=== PATIENT | male | born 1955 | race Caucasian/White ===

== ENCOUNTER → 2016-11-09 | Outpatient (CLI) | payer BC ==
--- NOTE | 2016-11-09 11:47 | DX ---
Chest, PA and Lateral History: Thoracic pain, M 52.16 Comparison: None Findings: Lung volumes are mildly prominent. There is retrocardiac bronchial wall thickening. There i s no focal infiltrate or consolidation. Heart size is normal. There is possibly prominent with of the descending aorta. There is no adenopathy or mass lesion. There is no pleural effusion or pneumothora x. There is a prominent thoracic kyphosis associated with likely old minor compression abnormalities of T7 and T8. There are small anterior osteophytes present throughout the thoracic spine below T2. Th ere is mild disk space narrowing of the T5-T6 disk space. Impression: 1. Kyphosis with likely remote trauma to T7 and T8. 2. Mild degenerative disk space narrowing C5-T6. 3. COPD. 4. Possible prominence of the ascending aorta. If there is concern for aortic valvular disease or an ascending aortic aneurysm, then CTA of the chest and/or echocardiography might be complementary. Amadou vaz, if there are any old outside chest x-rays, we would be happy to review them, to assess for int erval change. Results called to [facility] at 11:44am.
--- NOTE | 2016-11-09 11:51 | DX ---
Right Ribs, 4 views History: Severe acute right paraspinal pain without known trauma Comparison: None Findings: A metal BB is placed over the posterior right 11th rib where the patient has pain. No lower right rib fracture is identified. Minimal buckling of the posterior lateral right fifth rib likely r epresents an old fracture. The costovertebral alignments are normal. Impression: No acute rib abnormality identified.
== END ==
LOC: CIMAGING 10:54
PROVIDERS: ATTEND Physician Assistant
DX: R07.81 Pleurodynia (principal); M54.6 Pain in thoracic spine; M40.204 Unspecified kyphosis, thoracic region; J44.9 Chronic obstructive pulmonary disease, unspecified; R93.1 Abnormal findings on diagnostic imaging of heart and coronary circulation
CPT/HCPCS: 71020-PO; 71100-PO

== ENCOUNTER → 2016-11-14 | Outpatient (CLI) | payer BC ==
[~2016-11-14] MED LIST: IOPAMIDOL (ISOVUE 370) 100 ML BTL IV ONE
--- NOTE | 2016-11-14 18:16 | CT ---
CT Chest Aorta Angiogram With Contrast Enhancement and Multiplanar Reconstructions 1437 hours History: Thoracic aortic ectasia on chest x-ray study. Rule out aneurysm. Technique: Thin slice spiral multidetector helical CT imaging was performed through the chest while 9 0 mL Isovue-370 were injected intravenously without complication. The images were reviewed in multi ple planes. Volume rendering was performed to better visualize aortic contours as indicated. Dose re duction techniques were utilized. CT Aortogram Findings: The thoracic aorta has a normal contour without evidence of aneurysm or dissec tion. The great vessels off the aortic arch are normal in appearance. There is no evidence of atheros clerotic plaque involving the thoracic aorta with minimal plaque suspected involving the proximal to mid LAD. The branch vessels of the abdominal aorta in the upper abdomen to the level of the SMA are n ormal in appearance. The cardiac chambers are normal in appearance. There is no pericardial effusion. CT Chest Findings: The lungs are clear without consolidation, effusion, or pneumothorax. There are no pulmonary nodules. There is no evidence of hilar or mediastinal lymphadenopathy. The soft tissues ab out the chest are normal. Limited evaluation of upper abdominal structures to the level of the upper kidneys demonstrate no significant abnormality. Skeletal system: Vertebral body heights are well-maintained. There are no lytic or sclerotic osseous lesions. Hypertrophic calcifications are seen along the anterior and right lateral aspect of mid to l ower thoracic spine vertebral body segments compatible with underlying diffuse idiopathic skeletal hy perostosis (DISH). Impression: 1. Normal thoracic aorta without aneurysm or dissection. 2. No significant abnormality within the chest. 3. Mild DISH mid to lower thoracic spine.
== END ==
LOC: FIMAGING 13:49
PROVIDERS: ATTEND Physician Assistant
DX: I77.810 Thoracic aortic ectasia (principal); M48.14 Ankylosing hyperostosis [Forestier], thoracic region
CPT/HCPCS: Q9967

== ENCOUNTER 2017-12-01 15:13 | Emergency (ER) | payer BC ==
--- NOTE | 2017-12-01 15:23 | CPEKG ---
Heart Rate: 74 RR Interval: 811 P-R Interval: 164 QRSD Interval: 102 QT Interval: 400 QTC Interval: 444 P Prescott: 27 QRS Prescott: -22 T Wave Prescott: 43 EKG Severity - OTHERWISE NORMAL ECG - EKG Impression: SINUS RHYTHM EKG Impression: BORDERLINE LEFT AXIS DEVIATION Electronically Signed By: Tyrone Yu 03-Dec-2017 06:46:57
[2017-12-01 15:24] VITALS: TEMP 98.1
[2017-12-01 15:56] LABS: PLATELET COUNT 233 10^3/uL (150-400)
[2017-12-01 16:51] VITALS: RESP 16; O2SAT 93
--- NOTE | 2017-12-01 17:33 | EDPHY ---
H & P Time Seen by Provider: 12/01/17 15:18 HPI/ROS: 62-year-old male presents complaining of heart pounding while taking his shower today, he also noted that he skip a beat approximately every 10 beats. No chest pain, no shortness of breath, mild dizziness Patient with a history of hypertension and bipolar disorder, states he has been taking his medications as prescribed Had a "stomach bug" last week with diarrhea, no illnesses this week. No fever or chills. Pt plays rhythm guitar in a band. Review of systems As per HPI General no fever no chills no weakness HEENT no eye pain no eye discharge. No eye redness, no sore throat Respiratory no cough, no shortness of breath Cardiac no chest pain, no peripheral edema, positive palpitation GI no abdominal pain, no diarrhea, no constipation, no nausea, no vomiting no flank pain, no hematuria, no dysuria Musculoskeletal no myalgias, no joint pain Heme no easy bruising, no easy bleeding Endo no polyuria, no polydipsia Skin no rashes, no pruritus Neuro no syncope, mild dizziness, no headaches Psych is no suicidal ideation, no homicidal ideation Past Medical/Surgical History: Hypertension Bipolar Social History: Denies alcohol or drug use Smoking Status: Never smoked Physical Exam: 62-year-old male alert and oriented no acute distress nontoxic appearance, afebrile HEENT atraumatic normocephalic, extraocular muscles intact, anicteric Oropharynx negative for erythema negative exudate, tolerating her own secretions Neck supple no meningismus Lungs clear to auscultation bilaterally Heart regular rate and rhythm without murmur rub or gallop Abdomen nondistended normoactive bowel sounds soft nontender Back no CVA tenderness, no step-offs, no spinal tenderness Extremities no cyanosis clubbing or edema Neuro alert and oriented, no focal deficits Constitutional: Initial Vital Signs Temperature (C) 36.7 C 12/01/17 15:17 Heart Rate 83 12/01/17 15:17 Respiratory Rate 18 12/01/17 15:17 Blood Pressure 170/105 H 12/01/17 15:17 O2 Sat (%) 94 12/01/17 15:17 O2 Delivery Mode Room Air Allergies/Adverse Reactions: [id number] Reductase Inhibitor Allergy (Severe, Verified 12/01/17 15:24) Pt reports SYNCOPE/PASSED OUT Home Medications: Medication Instructions Recorded Depakote 04/29/10 FISH OIL CONCENTRATE 04/29/10 Felodipine 04/29/10 LITHIUM CARBONATE 04/29/10 Vit D3 04/29/10 WELCHOL 04/29/10 Metoprolol Tartrate 12/01/17 Medical Decision Making - Diagnostics Imaging Results: Imaging Impressions Chest X-Ray 12/01/17 15:41 Impression: No acute thoracic abnormality. ED Course/Re-evaluation: Patient evaluated for palpitations, mild dizziness, sensation of a skipped heartbeat. EKG normal sinus rhythm no acute ischemic changes Chest x-ray normal Labs Troponin normal TSH normal CBC CMP within normal limits Impression Palpitations Plan Discharge home Follow-up primary care physician Differential Diagnosis: Differential diagnosis considered but not limited to: Electrolyte abnormality, myocardial infarction, arrhythmia, dysrhythmia, orthostasis, palpitations, SVT, AFib, pneumonia - Data Points Laboratory Results: Laboratory Results 12/01/17 15:50 12/01/17 15:50 12/01/17 12/01/17 15:50 15:50 WBC 7.89 10^3/uL 10^3/uL (3.80-9.50) RBC 5.21 10^6/uL 10^6/uL (4.40-6.38) Hgb 16.4 g/dL g/dL (13.7-17.5) Hct 46.8 % % (40.0-51.0) MCV 89.8 fL fL (81.5-99.8) MCH 31.5 pg pg (27.9-34.1) MCHC 35.0 g/dL g/dL (32.4-36.7) RDW 12.4 % % (11.5-15.2) Plt Count 233 10^3/uL 10^3/uL (150-400) MPV 9.1 fL fL (8.7-11.7) Neut % (Auto) 49.8 % % (39.3-74.2) Lymph % (Auto) 35.2 % % (15.0-45.0) [place] % (Auto) 10.5 % % (4.5-13.0) Eos % (Auto) 3.4 % % (0.6-7.6) Baso % (Auto) 0.8 % % (0.3-1.7) Nucleat RBC Rel Count 0.0 % % (0.0-0.2) Absolute Neuts (auto) 3.93 10^3/uL 10^3/uL (1.70-6.50) Absolute Lymphs (auto) 2.78 10^3/uL 10^3/uL (1.00-3.00) Absolute Monos (auto) 0.83 10^3/uL H 10^3/uL (0.30-0.80) Absolute Eos (auto) 0.27 10^3/uL 10^3/uL (0.03-0.40) Absolute Basos (auto) 0.06 10^3/uL 10^3/uL (0.02-0.10) Absolute Nucleated RBC 0.00 10^3/uL 10^3/uL (0-0.01) Immature Gran % 0.3 % % (0.0-1.1) Immature Gran # 0.02 10^3/uL 10^3/uL (0.00-0.10) Sodium 141 mEq/L mEq/L (135-145) Potassium 4.0 mEq/L mEq/L (3.5-5.2) Chloride 104 mEq/L mEq/L (97-110) Carbon Dioxide 23 mEq/l mEq/l (22-31) Anion Gap 14 mEq/L mEq/L (8-16) BUN 15 mg/dL mg/dL (7-23) Creatinine 0.8 mg/dL mg/dL (0.7-1.3) Estimated GFR > 60 Glucose 90 mg/dL mg/dL (70-100) Calcium 9.6 mg/dL mg/dL (8.5-10.4) Magnesium 2.2 mg/dL mg/dL (1.6-2.3) Total Bilirubin 0.4 mg/dL mg/dL (0.1-1.4) AST 27 IU/L IU/L (17-59) ALT 44 IU/L IU/L (21-72) Alkaline Phosphatase 76 IU/L IU/L (38-126) Troponin I < 0.012 ng/mL ng/mL (0.000-0.034) Total Protein 7.9 g/dL g/dL (6.3-8.2) Albumin 4.0 g/dL g/dL (3.5-5.0) TSH 3.390 uIU/mL uIU/mL (0.465-4.680) Valproic Acid 35.9 mcg/mL L mcg/mL (50.0-150.0) [place] 0.3 mEq/L L mEq/L (0.6-1.2) Departure - Departure Disposition: Home, Routine, Self-Care Clinical Impression: Palpitations Condition: Good Instructions: Heart Palpitations (ED) Referrals: ERIBERTO AHUMADA [Primary Care Provider] - As per Instructions
[2017-12-01 17:43] VITALS: BP 120/83; PULSE 59
== END 2017-12-01 17:44 | disposition home or self-care (01) ==
LOC: CED 15:13
DX: R00.2 Palpitations (principal); I10 Essential (primary) hypertension
CPT/HCPCS: 71046-PO; 80053-PO; 83735-PO; 84443-PO; 84484-PO; 85025-PO